=== PATIENT | female | born 1955 | race Hispanic/Latino ===

== ENCOUNTER 2019-11-17 18:57 | Emergency (ER) | payer MEDICARE ==
[2019-11-17] MEDS ORDERED: SODIUM CHLORIDE IRRIG SOLUTION 1,000 ML IR ONE (18:58)
[2019-11-17 19:55] LABS: BASOPHILS % (AUTO) 0.5 % (0.0-5.0); EOSINOPHILS % (AUTO) 0.4 % (0.0-8.0); HEMATOCRIT 38.7 % (36-48); LYMPHOCYTES % (AUTO) 28.2 % (21.0-51.0); MEAN CORPUSCULAR HGB CONC 32.3 g/dL (32.0-36.0); MONOCYTES % (AUTO) 5.1 % (3.0-13.0); NEUTROPHILS % (AUTO) 65.4 % (40.0-77.0); PLATELET COUNT (AUTO) 280 K/uL (130-400); RED BLOOD CELL COUNT(AUTO) 4.16 MIL/uL (4.00-5.50); RED CELL DISTRIBUTION WIDTH 13.3 % (11.0-15.5); WHITE BLOOD COUNT (AUTO) 10.6 K/uL (4.8-10.8)
[2019-11-17 20:06] LABS: POTASSIUM 3.7 mmol/L (3.5-5.1)
[2019-11-17 20:10] LABS: ALBUMIN 4.2 g/dL (3.5-5.0); BILIRUBIN,TOTAL 0.2 mg/dL (0.2-1.0); TOTAL PROTEIN, SERUM 7.8 g/dL (6.0-8.3)
[2019-11-17 20:47] LABS: APPEARANCE,URINE Clear (CLEAR); BILIRUBIN,URINE Negative (NEGATIVE); COLOR,URINE Yellow (YELLOW); GLUCOSE, URINE (UA) Negative (NEGATIVE); KETONES,URINE Negative (NEGATIVE); LEUKOCYTE ESTERASE ,URINE Small (NEGATIVE); NITRATE,URINE Negative (NEGATIVE); OCCULT BLOOD,URINE Negative (NEGATIVE); PROTEIN,URINE Negative (NEGATIVE); UROBILINOGEN,URINE 0.2 mg/dL (0.2-1.0)
[2019-11-17 21:04] LABS: BACTERIA,URINE Rare /HPF (None Seen); RBC,URINE 0-1 /HPF (0-1); SQUAMOUS EPITHELIAL CELL,UR Few /HPF (0-2)
[2019-11-17] MEDS ORDERED: MAGNESIUM CITRATE 296 ML SOLUTION ONE (22:26)
== END 2019-11-17 22:35 | disposition home or self-care (01) ==
LOC: EDH 18:57
DX: K59.09 Other constipation (principal); M79.7 Fibromyalgia; I10 Essential (primary) hypertension; F41.9 Anxiety disorder, unspecified; Z88.1 Allergy status to other antibiotic agents; Z88.8 Allergy status to other drugs, medicaments and biological substances; Z91.040 Latex allergy status
CPT/HCPCS: 36415; 74176; 80053; 81001; 85025

== ENCOUNTER → 2019-12-25 | Outpatient (CLI) | payer MEDICARE | END | disposition home or self-care (01) | DX: N28.1 Cyst of kidney, acquired (principal) ==

== ENCOUNTER → 2019-12-29 | Outpatient (CLI) | payer MEDICARE ==
[~2019-12-29] MED LIST: IOHEXOL-350 75 ML VIAL IV ONE
== END | disposition home or self-care (01) ==
LOC: RAH 08:20
PROVIDERS: ATTEND Urology
DX: N28.1 Cyst of kidney, acquired (principal); D49.512 Neoplasm of unspecified behavior of left kidney; Z90.49 Acquired absence of other specified parts of digestive tract; Z90.710 Acquired absence of both cervix and uterus
CPT/HCPCS: 74178; Q9967

== ENCOUNTER → 2020-06-28 | Outpatient (CLI) | payer MEDICARE | END | disposition home or self-care (01) | LOC: RAH 10:27 | PROVIDERS: ATTEND Urology | DX: N28.1 Cyst of kidney, acquired (principal) | CPT/HCPCS: 76770 ==

== ENCOUNTER 2020-12-28 15:38 | Emergency (ER) | payer MEDICARE ==
[~2020-12-28] VITALS: Ht 147.3 cm; Wt 77.1 kg
[2020-12-28 15:40] VITALS: BP 131/70
[2020-12-28] MEDS ORDERED: IBUP-2070 PO (19:17)
== END 2020-12-28 19:56 | disposition home or self-care (01) ==
LOC: MERGE 15:38 → EDH 15:38
DX: T18.9XXA Foreign body of alimentary tract, part unspecified, initial encounter (principal); I10 Essential (primary) hypertension; E78.5 Hyperlipidemia, unspecified; K21.9 Gastro-esophageal reflux disease without esophagitis; M79.7 Fibromyalgia; Z88.1 Allergy status to other antibiotic agents; Z91.040 Latex allergy status; Z88.8 Allergy status to other drugs, medicaments and biological substances; Z79.899 Other long term (current) drug therapy; Z90.710 Acquired absence of both cervix and uterus; X58.XXXA Exposure to other specified factors, initial encounter; Y93.89 Activity, other specified; Y92.89 Other specified places as the place of occurrence of the external cause; Y99.8 Other external cause status
CPT/HCPCS: 70360; 71046

== ENCOUNTER → 2021-02-11 | Outpatient (CLI) | payer MEDICARE ==
[~2021-02-11] MED LIST changes: +IBUP-2070 PO; -IOHEXOL-350 75 ML VIAL IV ONE
== END | disposition home or self-care (01) ==
LOC: RAH 08:45
PROVIDERS: ATTEND Urology
DX: N28.1 Cyst of kidney, acquired (principal)
CPT/HCPCS: 76770

== ENCOUNTER → 2022-05-05 | Outpatient (CLI) | payer MEDICARE | END | disposition home or self-care (01) | LOC: RAH 08:44 | PROVIDERS: ATTEND Urology | DX: N28.1 Cyst of kidney, acquired (principal); N39.0 Urinary tract infection, site not specified | CPT/HCPCS: 76770 ==

== ENCOUNTER 2022-11-25 12:05 | Emergency (ER) | payer MEDICARE ==
[~2022-11-25] VITALS: Ht 147.3 cm; Wt 68.0 kg
[2022-11-25 12:46] VITALS: BP 128/65
== END 2022-11-25 12:49 | disposition home or self-care (01) ==
LOC: EDH 12:05
DX: S90.562A Insect bite (nonvenomous), left ankle, initial encounter (principal); R58 Hemorrhage, not elsewhere classified; I10 Essential (primary) hypertension; E78.00 Pure hypercholesterolemia, unspecified; M79.7 Fibromyalgia; Z90.49 Acquired absence of other specified parts of digestive tract; Z90.710 Acquired absence of both cervix and uterus; Z88.1 Allergy status to other antibiotic agents; Z88.8 Allergy status to other drugs, medicaments and biological substances; Z91.040 Latex allergy status; W57.XXXA Bitten or stung by nonvenomous insect and other nonvenomous arthropods, initial encounter; Y93.89 Activity, other specified; Y92.89 Other specified places as the place of occurrence of the external cause; Y99.8 Other external cause status
CPT/HCPCS: 99281

== ENCOUNTER 2023-04-20 15:21 | Emergency (ER) | payer MEDICARE ==
[~2023-04-20] VITALS: Ht 147.3 cm; Wt 68.0 kg
[2023-04-20] MEDS ORDERED: IBUPROFEN 600 MG TABLET PO ONE (16:30)
[2023-04-20 18:15] VITALS: BP 132/78; PULSE 78; RESP 18; O2SAT 98
== END 2023-04-20 18:15 | disposition home or self-care (01) ==
LOC: EDH 15:21
DX: S93.401A Sprain of unspecified ligament of right ankle, initial encounter (principal); M79.7 Fibromyalgia; I10 Essential (primary) hypertension; E78.00 Pure hypercholesterolemia, unspecified; Z88.1 Allergy status to other antibiotic agents; Z88.8 Allergy status to other drugs, medicaments and biological substances; Z90.49 Acquired absence of other specified parts of digestive tract; Z91.040 Latex allergy status; W01.0XXA Fall on same level from slipping, tripping and stumbling without subsequent striking against object, initial encounter; Y93.39 Activity, other involving climbing, rappelling and jumping off; Y92.89 Other specified places as the place of occurrence of the external cause; Y99.8 Other external cause status
CPT/HCPCS: 29515; 73110; 73562; 73610

== ENCOUNTER → 2023-05-16 | Outpatient (CLI) | payer MEDICARE | END | disposition home or self-care (01) | LOC: RAH 12:49 | PROVIDERS: ATTEND Urology | DX: N28.1 Cyst of kidney, acquired (principal) | CPT/HCPCS: 76770 ==

== ENCOUNTER 2024-11-23 13:32 | Emergency (ER) | payer OTHER ==
[~2024-11-23] VITALS: Ht 149.9 cm; Wt 73.0 kg
[2024-11-23 14:00] LABS: BASOPHILS # (AUTO) 0.04 K/uL (0.00-0.20); BASOPHILS % (AUTO) 0.5 % (0.0-5.0); EOSINOPHILS # (AUTO) 0.09 K/uL (0.00-0.70); EOSINOPHILS % (AUTO) 1.1 % (0.0-8.0); HEMATOCRIT 42.2 % (36-48); IMMATURE GRANULOCYTE ABSOLUTE 0.02 K/uL (0-1); LYMPHOCYTES # (AUTO) 2.6 K/uL (1.0-4.8); LYMPHOCYTES % (AUTO) 31.7 % (21.0-51.0); MEAN CORPUSCULAR HEMOGLOBIN 30.5 pg (27.0-33.0); MEAN CORPUSCULAR HGB CONC 32.5 g/dL (32.0-36.0); MONOCYTES # (AUTO) 0.5 K/uL (0.1-1.0); MONOCYTES % (AUTO) 5.7 % (3.0-13.0); NEUTROPHILS # (AUTO) 4.9 K/uL (1.8-7.7); NEUTROPHILS % (AUTO) 60.8 % (40.0-77.0); PLATELET COUNT (AUTO) 354 K/uL (130-400); RED BLOOD CELL COUNT(AUTO) 4.49 MIL/uL (4.00-5.50); RED CELL DISTRIBUTION WIDTH 13.4 % (11.0-15.5); WHITE BLOOD COUNT (AUTO) 8.1 K/uL (4.8-10.8)
--- NOTE | 2024-11-23 14:11 | HMCIMG ---
CT HEAD/BRAIN W/O CONTRAST HISTORY: Left common numbness COMPARISON: None TECHNIQUE: Multiple sequential axial images of the head were obtained from the base of the skull through vertex. Patient was not given contrast through intravenous route. FINDINGS: The ventricles and extraventricular CSF spaces are nondilated for patient's age. There is no midline shift, mass effect or herniation. No acute intracranial bleed is seen. Visualized portion of the paranasal sinuses are grossly within normal limits. IMPRESSION: 1. No acute intracranial bleed is seen. CT was performed with one or more following dose reduction techniques: automated exposure control, adjustment of the mA and kv according to patient's size, or use of a iterative reconstruction technique.
--- NOTE | 2024-11-23 14:22 | ERN ---
General Chief Complaint: Numbness Stated Complaint: LEFT ARM NUMBNESS Time Seen by MD: 13:34 Source: patient History of Present Illness Initial Comments Patient is a 69-year-old female coming in complaining of left distal arm tingling. Patient states that this began earlier today in his here for further evaluation. PATIENT STATES THAT THE SYMPTOMS BEGAN AND THEN O'CLOCK IN THE MORNING. Patient also states that she has a history of recently discovered Andrews's palsy and a recent cervical surgery involving C6 and C7. Allergies: Coded Allergies: Latex, Natural Rubber (Unverified Allergy, Unknown, 11/17/19) ciprofloxacin (Unverified Allergy, Unknown, 12/30/20) folic acid (Unverified Allergy, Unknown, 11/17/19) gabapentin (Unverified Allergy, Unknown, 11/17/19) latex (Unverified Allergy, Unknown, 12/30/20) levofloxacin (Unverified Allergy, Unknown, 11/17/19) metronidazole (Unverified Allergy, Unknown, 11/17/19) Home Meds Active Scripts Ibuprofen (Ibuprofen) 600 Mg Tablet, 600 MG PO Q6H PRN for PAIN, #10 TAB Prov:BURKE CASILLAS 12/28/20 Past Medical History Past Medical History: Fibromyalgia, High Cholesterol, Hypertension Past Surgical History: Hysterectomy, Cholecystectomy Family History Family History: Negative Social History Social History: Negative, Lives with family Female( History) History: Not Applicable ROS Dictation CONSTITUTIONAL: No chills, no fever, no weakness, no diaphoresis, no malaise. HEAD/FACE: No signs of trauma. EENT: No eye pain, no blurred vision, no tearing, no double vision, no ear pain, no ear discharge, no nose pain, no nasal congestion, no throat pain, no throat swelling, no mouth pain. RESPIRATORY: No cough, no orthopnea, no SOB, no stridor, no wheezing. CARDIOVASCULAR: No chest pain, no edema, no palpitations, no syncope. GASTROINTESTINAL/ABDOMINAL: No abdominal pain, no constipation, no diarrhea, no nausea, no vomiting. GENITOURINARY: No abnormal discharge, no dysuria, no frequent urination, no hematuria. No complaints of pain in the genitals. MUSCULOSKELETAL: No back pain, no gout, no joint pain, no joint swelling, no muscle pain, no muscle stiffness, no neck pain. INTEGUMENTARY: No change in color, no change in hair/nails, no dryness, no lesion, no lumps, no rash. NEUROLOGICAL/PSYCH: No anxiety, not depressed, no emotional problem, no headache, no numbness, no pre-existing deficit, no history of seizures, no tremors, no weakness. HEMATOLOGIC/LYMPHATIC: Not anemic, no history of blood clots, no apparent bleeding, no bruising, glands not swollen. All Systems Negative, Except as Noted. Physical Exam Physical Exam Dictation VITAL SIGNS: Reviewed. GENERAL APPEARANCE: Alert, oriented x3, no acute distress, obese. HEAD AND FACE: Non-traumatic. EYES: PERRL, pink conjunctivas, eyelid no trauma, anterior chamber clear. EARS: Pinnas intact and no signs of trauma or erythema. Ear canals clear and no discharge. TMs no erythema. NOSE: No discharge, no bleeding. OROPHARYNX: Mouth normal, teeth no caries, tongue pink. Pharynx clear, no erythema. Tonsils no exudates, no abscesses noted. Mucous membrane moist. NECK: Supple, non-tender, no thyromegaly, no masses, no JVD, no bruits. BREAST: Deferred. CHEST: No tenderness, no crepitus, no paradoxical movement, no retractions. LUNGS: Clear, well-ventilated, symmetric, no rales, no wheezing, no rhonchi, no stridor, good breath sounds bilaterally. HEART: Regular rate, regular rhythm, no murmur, no gallops. VASCULAR: No peripheral edema. ABDOMEN: Soft, positive bowel sounds, nondistended, no guarding, nontender, no rebound, no masses no hepatomegaly, no splenomegaly, no Garcia's sign, no hernias. RECTAL: Deferred. GENITAL: Deferred. NEUROLOGICAL: Normal speech, gross motor function intact, gross sensory function intact. MUSCULOSKELETAL: Neck nontender, full range of motion, back nontender, full range of motion. EXTREMITIES: Nontender, full range of motion. SKIN: Color pink, dry, no turgor, no rash, no lacerations, no abrasions, no c ontusions. LYMPHATICS: Deferred. Results Laboratory and Microbiology Lab and Micro Result Laboratory Tests Test 11/23/24 13:51 11/23/24 14:19 White Blood Count 8.1 K/uL (4.8-10.8) Red Blood Count 4.49 MIL/uL (4.00-5.50) Hemoglobin 13.7 g/dL (12.0-16.0) Hematocrit 42.2 % (36-48) Mean Corpuscular Volume 94.0 fL (79-99) Mean Corpuscular Hemoglobin 30.5 pg (27.0-33.0) Mean Corpuscular Hemoglobin Concent 32.5 g/dL (32.0-36.0) Red Cell Distribution Width 13.4 % (11.0-15.5) Platelet Count 354 K/uL (130-400) Mean Platelet Volume 10.2 fL (7.5-10.5) Immature Granulocyte % (Auto) 0.2 % (0-1) Neutrophils (%) (Auto) 60.8 % (40.0-77.0) Lymphocytes (%) (Auto) 31.7 % (21.0-51.0) Monocytes (%) (Auto) 5.7 % (3.0-13.0) Eosinophils (%) (Auto) 1.1 % (0.0-8.0) Basophils (%) (Auto) 0.5 % (0.0-5.0) Neutrophils # (Auto) 4.9 K/uL (1.8-7.7) Lymphocytes # (Auto) 2.6 K/uL (1.0-4.8) Monocytes # (Auto) 0.5 K/uL (0.1-1.0) Eosinophils # (Auto) 0.09 K/uL (0.00-0.70) Basophils # (Auto) 0.04 K/uL (0.00-0.20) Absolute Immature Granulocyte (auto 0.02 K/uL (0-1) Nucleated Red Blood Cells 0.0 % (0.0-0.19) Sodium Level 138 mmol/L (136-145) Potassium Level 3.8 mmol/L (3.5-5.1) Chloride Level 103 mmol/L (101-111) Carbon Dioxide Level 31 mmol/L (21-32) Blood Urea Nitrogen 14 mg/dL (7-18) Creatinine 0.7 mg/dL (0.5-1.0) Glomerular Filtration Rate Calc 95 mL/min (>90) Random Glucose 97 mg/dL (70-105) Total Calcium 9.2 mg/dL (8.5-10.1) Magnesium Level 2.30 mg/dL (1.80-2.40) Urine Color COLORLESS (YELLOW) Urine Appearance CLEAR (CLEAR) Urine pH 7.0 (5.0-8.0) Urine Specific [place] 1.004 (1.001-1.031) Urine Protein NEGATIVE mg/dL (NEGATIVE) Urine Glucose (UA) NEGATIVE mg/dL (NEGATIVE) Urine Ketones NEGATIVE mg/dL (NEGATIVE) Urine Occult Blood NEGATIVE (NEGATIVE) Urine Nitrate NEGATIVE (NEGATIVE) Urine Bilirubin NEGATIVE mg/dL (NEGATIVE) Urine Urobilinogen 0.2 mg/dL (0.2-1.0) Urine Leukocyte Esterase NEGATIVE Stephani/uL Urine RBC None /HPF (0-1) Urine WBC None /HPF (0-1) Urine Squamous Epithelial Cells RARE /HPF (0-2) Urine Bacteria None /HPF (None Seen) EKG/XRAY/US/CT/MRI CT Scan Comment [address] [address] IMAGING REPORT Signed PATIENT: SUPA SILVESTRE MR#: [id number] : 1955 SEX: F AGE: 69 LOCATION: [facility] ORDER 38 STATUS: REG REPORT#: [id number] SERVICE 36 REASON: left arm tingly ORDERING PHYSICIAN: JULIA METZ MD PROCEDURE: HEAD WO - CT HEAD/BRAIN W/O CONTRAST CT HEAD/BRAIN W/O CONTRAST HISTORY: Left common numbness COMPARISON: None TECHNIQUE: Multiple sequential axial images of the head were obtained from the base of the skull through vertex. Patient was not given contrast through intravenous route. FINDINGS: The ventricles and extraventricular CSF spaces are nondilated for patient's age. There is no midline shift, mass effect or herniation. No acute intracranial bleed is seen. Visualized portion of the paranasal sinuses are grossly within normal limits. IMPRESSION: 1. No acute intracranial bleed is seen. CT was performed with one or more following dose reduction techniques: automated exposure control, adjustment of the mA and kv according to patient's size, or use of a iterative reconstruction technique. DICTATED BY: JASSI CARDENAS MD DATE: 11/23/24 1408 ELECTRONICALLY SIGNED BY: JASSI CARDENAS MD DATE: 11/23/24 1411 [facility] MDM: Differential diagnosis: AA VERSUS CVA, LEFT ARM TINGLING, Rationale: Tests considered and ordered secondary to shared decision making include: Previous outside records reviewed: Old ER visits. Risk of complication and/or morbidity or mortality of patient management: None Medications-Per medication reconciliation Need for hospitalization: Patient does not meet criteria for hospitalization. Need for emergency major/minor surgery: No There are no social concerns with this patient. Prescription drug management Prescriptions will include symptomatic care Patient's prior external medical records from other ER visits were reviewed by me as indicated. Prior testing and results from previous visits were reviewed. Prior tests were taken into account with medical decision making and resource utilization, independent historian/historians were used to obtain complete medical history. I independently interpreted the test that were performed, results were reviewed by me and considered findings on radiology if ordered. Medical management and examination interpretation discussions were had by me with other qualified healthcare professionals as indicated for the patient's care. PATIENT IS A 69-YEAR-OLD FEMALE COMING IN TO BE EVALUATED FOR LEFT ARM NUMBNESS AND TINGLING. BASED ON THE TELENEUROLOGIST FINDING PATIENT SHOULD BE TRANSFERRED TO FACILITY WITH NEUROLOGIST CAPABILITY FOR ONGOING EVALUATION FURTHER IMAGING TO RULE OUT A CVA VERSUS A TIA. ED Course Orders Procedure Category Date Status Time Cbc With Differential LAB 11/23/24 Complete 13:37 Basic Metabolic Panel LAB 11/23/24 Complete 13:37 Magnesium LAB 11/23/24 Complete 13:37 Ct Head/Brain W/O CT 11/23/24 Resulted Contrast 13:37 Acetaminophen 500mg PHA 11/23/24 Complete Tab (Tylenol 500mg T 17:00 Urinalysis Profile LAB 11/23/24 Complete 16:45 Current Medications Medications (Trade) Dose Ordered Sig/Tyler Route PRN Reason Start Time Stop Time Status Last Admin Dose Admin Acetaminophen (TYLenol 500MG TAB) 1,000 mg ONCE ONCE PO 11/23/24 17:00 11/23/24 17:01 DC 11/23/24 16:39 Vital Signs Date Time Temp Pulse Resp B/P (MAP) Pulse Ox O2 Delivery O2 Flow Rate FiO2 11/23/24 21:10 98.2 71 14 127/69 99 Room Air* 0 11/23/24 18:30 98.2 67 16 148/50 98 Room Air* 0 11/23/24 16:35 98.2 65 16 132/65 98 Room Air* 0 21 11/23/24 14:28 98.2 67 16 143/68 98 Room Air* 0 11/23/24 13:38 97.9 88 18 140/72 97 Room Air DX & DISP Disposition: Other(Comment) (PATIENT CARE TRANSITIONED TO DR. LI) Departure Impression: Primary Impression: TIA (transient ischemic attack) Additional Impressions: CVA (cerebral vascular accident), Left arm numbness Condition: Stable Referrals: TOÑA HOLMAN MD (PCP) JULIA METZ MD November 23, 2024 14:22 GEOVANNI LI MD November 23, 2024 21:33
[2024-11-23 14:47] LABS: CREATININE 0.7 mg/dL (0.5-1.0); MAGNESIUM 2.3 mg/dL (1.80-2.40); POTASSIUM 3.8 mmol/L (3.5-5.1)
[2024-11-23] MEDS: acetaMINOPHEN 500 MG TABLET PO ONE (16:39)
[2024-11-23 16:52] LABS: APPEARANCE,URINE CLEAR (CLEAR); BILIRUBIN,URINE NEGATIVE (NEGATIVE); COLOR,URINE COLORLESS (YELLOW); GLUCOSE, URINE (UA) NEGATIVE (NEGATIVE); KETONES,URINE NEGATIVE (NEGATIVE); LEUKOCYTE ESTERASE ,URINE NEGATIVE Leu/uL (NEGATIVE); NITRATE,URINE NEGATIVE (NEGATIVE); OCCULT BLOOD,URINE NEGATIVE (NEGATIVE); PROTEIN,URINE NEGATIVE (NEGATIVE); UROBILINOGEN,URINE 0.2 mg/dL (0.2-1.0)
[2024-11-23 16:53] LABS: ADD UA MICROSCOPIC YES
[2024-11-23 16:57] LABS: SQUAMOUS EPITHELIAL CELL,UR RARE /HPF (0-2)
--- NOTE | 2024-11-23 17:29 | CONS ---
CONSULT NOTE: [facility] Note # Demographics Consult Type: General Neurology Patient Location: Emergency Room First Name: SUPA Doll Last Name: NIRMALA Date of : 1955 Age: 69 Gender: Female Facility: [facility] Time of Initial Page (Central Time): 11/23/2024 13:50 Time of Return Call (Central Time): 11/23/2024 13:50 # HPI History: [id number] Patient is coming to ER for left arm tingling; her symptoms lasted approx 5 hrs and have resolved. She also has a headache. H/O bells palsy and cervical spine surgery. H/O HTN, DM Duration: - resolved # Scores Level of Consciousness 1a: [0] = Alert; keenly responsive LOC Questions 1b: [0] = Answers both questions correctly LOC Commands 1c: [0] = Performs both tasks correctly Best Gaze 2: [0] = Normal Visual 3: [0] = No visual loss Facial Palsy 4: [0] = Normal symmetrical movements Motor Arm Left 5a: [0] = No drift Motor Arm Right 5b: [0] = No drift Motor Leg Left 6a: [0] = No drift Motor Leg Right 6b: [0] = No drift Limb Ataxia 7: [0] = Absent Sensory 8: [0] = Normal Best Language 9: [0] = No aphasia Dysarthria 10: [0] = Normal Extinction and Inattention 11: [0] = No abnormality NIHSS Total: 0 ABCD2 Score for TIA: [1] = Age >/= 60 years: Yes [1] = BP >/= 140/90: Yes [0] = Clinical features of the TIA: other symptoms [2] = Duration of symptoms: >/= 60 minutes [0] = History of diabetes: No ABCD2 Total: 4 # Assessment Impression: - Transient Ischemic Attack # Plan Thrombolytic/Intervention: NOT IV Thrombolysis or IA Intervention candidate Thrombolytic Exclusion (< 3 hour window): - NIHSS = 0 Intraarterial Exclusion: - clinical exam not consistent with presence of large vessel occlusion (LVO), can reconsider if LVO found on vascular imaging Modified [place] Scale (mRS) pre-stroke: [0] = No symptoms at all. Labs: - hemoglobin A1c - lipid panel - comprehensive metabolic panel - CBC Imaging: (urgency: STAT): - CT Angiogram Head and CT Angiogram Neck Imaging: (urgency: routine): - MRI Brain without contrast Diagnostic Test: - echo without bubble study Medication: - start statin with goal of LDL < 70 - aspirin 81 mg PLUS clopidogrel (Plavix) 75 mg for 21 days, then monotherapy therafter DVT Prophylaxis: - SCD Other: - If patient has any neurological deterioration please call me back immediately - LDL < 70 - permissive hypertension - telemetry monitoring - will need event monitor or loop recorder as outpatient if atrial fibrillation not found as inpatient - neurology referral as outpatient - I have discussed my recommendations with the referring provider # Demographics First Name: SUPA Doll Last Name: NIRMALA Facility: [facility] KENDELL LE MD November 23, 2024 17:29
--- NOTE | 2024-11-24 01:36 | NUR ---
TRANSFER CALL PLACED TO [facility] TRADING ANALYST TO INITIATE TRANSFER FOR NEUROLOGY SERVICES
--- NOTE | 2024-11-24 03:43 | NUR ---
TRANSFER CONTACTED DR. HOLMAN (PCP) WHO STATES HE WILL ADMIT HIS PT. TO [facility] FOR NEURO TO CONSULT. HAVE GIVEN THIS INFORMATION TO THE TRANSFER CENTER.
[2024-11-24 04:50] VITALS: BP 108/60; PULSE 66; RESP 16; TEMP 97.8; O2SAT 97
--- NOTE | 2024-11-24 05:08 | NUR ---
REPORT GIVEN TO BRITTANY SNOW AT [facility]
== END 2024-11-24 05:37 | disposition short-term general hospital (02) ==
LOC: EDH 13:32
DX: G45.9 Transient cerebral ischemic attack, unspecified (principal); I63.9 Cerebral infarction, unspecified; R20.0 Anesthesia of skin; E11.9 Type 2 diabetes mellitus without complications; E78.00 Pure hypercholesterolemia, unspecified; I10 Essential (primary) hypertension; M79.7 Fibromyalgia; Z88.1 Allergy status to other antibiotic agents; Z88.8 Allergy status to other drugs, medicaments and biological substances; Z90.49 Acquired absence of other specified parts of digestive tract; Z90.710 Acquired absence of both cervix and uterus; Z91.040 Latex allergy status
CPT/HCPCS: 36415; 70450; 80048; 81001; 83735; 85025; 99285

== ENCOUNTER → 2025-01-27 | Outpatient (CLI) | payer OTHER ==
--- NOTE | 2025-02-02 15:24 | HMCIMG ---
STUDY PERFORMED: BD Bone Density DEXA Axial Skeleton TECHNIQUE: [employer] Dual Energy X-ray absorptiometry (DEXA) COMPARISON: None available. FINDINGS: Lumbar Spine L1-L4 Density(g/cm2): 0.906- T-score: 1.3 Z-score: 0.7 Left Femoral Neck Density(g/cm2): 0.610 T-score: -2.2 Z-score: -0.6 Total Proximal Femur Density(g/cm2): 0.746 T-score: -1.6 Z-score: -0.3 INTERPRETATION: The bone mineral density in the lumbar spine is in the osteopenia range. The bone mineral density of the left hip is in the osteopenia range. FRAX 10 year probability of fracture: Major osteoporotic fracture: 10% Hip fracture: 1.8% COMMENTS: T-scores are a means of evaluating bone mineral density relative to young adult population and are defined as the number of standard deviations of the mean. T-scores at or above -1.0 are considered normal. T-scores between -1.0 and -2.5 are consistent with osteopenia. T-scores at or below -2.5 are consistent with osteoporosis. T-score values below -2.0 are thought to be associated with an increased risk of fracture. Z-scores are related to age-matched controls. The study does not distinguish osteoporosis from other causes of decreased bone density such as osteomalacia or multiple myeloma. Therefore, if clinically indicated or Z-scores are less than -2.0, additional metabolic studies may be appropriate. RECOMMENDATIONS: National Osteoporosis Foundation (NOF) guidelines recommend initiating therapy to reduce fracture risk in women with BMD: T-Score below -2 SD T-Score Below -1.5 with other risks factors present NOF guidelines recommend all people with T score of -2.5 and below (osteoporosis) consider taken osteoporosis medication. The NOF recommends adults under age 50 need 1,000 mg of calcium and 400-800 IU of vitamin D daily. Adults 50 and over need 1,200 mg of calcium and 800-1000 IU of vitamin D daily. Effective therapies for the prevention of osteoporosis include bisphosphonates (Fosamax and Actonel) and Evista. Hormone therapy may be an option based on review of risks and benefit of treatment. People with diagnosed cases of osteoporosis or at high risk for fracture should have regular bone mineral density tests. For patients eligible for Medicare, routine testing is allowed once every 2 years. The testing frequency can be increased to one year for patients who have rapidly progressing disease, those who are receiving or discontinuing medical therapy to restore bone mass, or have additional risk factors. /[place]
== END | disposition home or self-care (01) ==
LOC: RAH 13:47
PROVIDERS: ATTEND Internal Medicine
DX: M85.89 Other specified disorders of bone density and structure, multiple sites (principal); Z13.820 Encounter for screening for osteoporosis; Z78.0 Asymptomatic menopausal state
CPT/HCPCS: 77080